=== PATIENT | male | born 1995 | race Two or more races ===

== ENCOUNTER 2016-12-22 20:37 | Emergency (ER) | payer BC | END 2016-12-22 22:52 | disposition home or self-care (01) | LOC: CED 20:37 → CFTX 20:37 | DX: S61.412A Laceration without foreign body of left hand, initial encounter (principal); W26.0XXA Contact with knife, initial encounter; Y92.009 Unspecified place in unspecified non-institutional (private) residence as the place of occurrence of the external cause | CPT/HCPCS: 12001; 90471; 90715; 99283 ==